=== PATIENT | male | born 1955 | race Caucasian/White ===

== ENCOUNTER 2019-02-13 10:21 | Outpatient (CLI) | payer OTHER ==
[2019-02-13 18:29] LABS: PT - PROTHROMBIN TIME 11.5 secs (9.9-12.6)
[2019-02-14 12:10] LABS: HEPATITIS C ANTIBODY NON-REACTIVE (NON-REACTIVE)
== END 2019-02-13 10:22 | disposition home or self-care (01) ==
LOC: LAB.S 10:21
PROVIDERS: ATTEND Naturopath
DX: Z11.59 Encounter for screening for other viral diseases (principal); D72.818 Other decreased white blood cell count
CPT/HCPCS: 36415; 81599; 85250; 85610; 85730; 86803

== ENCOUNTER 2019-05-18 13:23 | Emergency (ER) | payer BC, OTHER ==
--- NOTE | 2019-05-18 14:40 | XRAY Report ---
Reason: pain/deformity Procedure Date: 05/18/2019 Accession Number: [id number] / [id number] Procedure: XR - Elbow 3 View RT CPT Code: Final Report FULL RESULT: EXAM: RIGHT ELBOW RADIOGRAPHY EXAM DATE: 05/18/2019 02:23 PM. CLINICAL HISTORY: Pain/deformity. COMPARISON: None. TECHNIQUE: 3 views. FINDINGS: Bones: No fractures or bone lesions. Joints: No significant degenerative process. No effusion. No subluxation. Soft Tissues: No soft tissue swelling or soft tissue calcification. IMPRESSION: Negative right elbow radiography. RADIA
[2019-05-18] MEDS ORDERED: oxyCODONE 5 MG TABLET PO STA (15:24)
--- NOTE | 2019-05-18 15:31 | ED Physician Documentation ---
PD HPI UPPER EXT INJURY - Stated complaint Stated Complaint: ARM INJURY - Chief complaint Chief Complaint: Trauma Ext - History obtained from History obtained from: Patient - History of Present Illness Location: Right, Arm Type of injury: Other (felt a pop lifting a garbage can into his truck) Where injury occurred: Home Timing - onset: How many hours ago Timing - duration: Hours (1) Timing - details: Abrupt onset Pain level max: 7 Pain level now: 7 Improved by: Rest Worsened by: Moving, Palpating Associated symptoms: Swelling Contributing factors: No: Anticoagulated, Prior ortho surgery, Prosthetic joint, Work related Similar symptoms before: Has not had sx before Recently seen: Not recently seen Review of Systems Constitutional: denies: Fever GI: denies: Vomiting Skin: denies: Rash Musculoskeletal: denies: Neck pain, Back pain Neurologic: denies: Headache PD PAST MEDICAL HISTORY - Past Medical History Past Medical History: No Cardiovascular: None Respiratory: None Neuro: None Endocrine/Autoimmune: None GI: Diverticulitis : None HEENT: None Psych: None Musculoskeletal: None Derm: None - Past Surgical History Past Surgical History: Yes HEENT: Tonsil/Adenoidectomy - Present Medications Home Medications: Ambulatory Orders Medication Instructions Recorded Confirmed Oxycodone HCl/Acetaminophen 1 - 2 each PO Q6H PRN #20 tablet 05/18/19 [Percocet 5-325 mg Tablet] - Allergies Allergies/Adverse Reactions: Allergies Allergy/AdvReac Type Severity Reaction Status Date / Time No Known Drug Allergies Allergy Verified 05/18/19 14:05 - Social History Does the pt smoke?: Yes Smoking Status: Current every day smoker Does the pt drink ETOH?: Yes Does the pt have substance abuse?: No - Immunizations Immunizations are current?: Yes - POLST Patient has POLST: No PD ED PE NORMAL - Vitals Vital signs reviewed: Yes - General General: Alert and oriented X 3, No acute distress - HEENT HEENT: Moist mucous membranes - Neck Neck: Supple, no meningeal sign - Cardiac Cardiac: RRR - Respiratory Respiratory: No respiratory distress, Clear bilaterally - Derm Derm: Warm and dry - Extremities Extremities: Other (Deformity to the right bicep. Tenderness along the inferior aspect of the muscle. Neurovascular intact. Otherwise normal exam) - Neuro Neuro: Alert and oriented X 3 Results - Vitals Vitals: Vital Signs - 24 hr 05/18/19 14:03 Temperature 36.6 C Heart Rate 87 Respiratory 16 Rate Blood Pressure 156/97 H O2 Saturation 96 Oxygen O2 Source Room air - Rads (name of study) Right elbow x-ray Radiology: Prelim report reviewed, EMP read contemporaneously, See rad report (Normal) PD MEDICAL DECISION MAKING - ED course Complexity details: reviewed results, re-evaluated patient, considered differential, d/w patient, d/w it solutions sales consultant (Dr. Rose - ortho - Recommend sling and follow-up in clinic) ED course: Patient with a tendon versus muscle tear of the right bicep. Discussed the case with orthopedics, placed in a sling. Neurovascularly intact. He will follow-up with orthopedics for further care. Patient counseled regarding signs and symptoms for which I believe and urgent re-evaluation would be necessary. Patient with good understanding of and agreement to plan and is comfortable going home at this time This document was made in part using voice recognition software. While efforts are made to proofread this document, sound alike and grammatical errors may occur. Departure - Departure Disposition: 01 Home, Self Care Clinical Impression: Tear of right biceps muscle Qualifiers: Encounter type: initial encounter Qualified Code(s): S46.211A - Strain of muscle, fascia and tendon of other parts of biceps, right arm, initial encounter Condition: Good Instructions: ED Strain Muscle Ext Follow-Up: Ken Staley MD [Provider Admit Priv/Credential] - Within 1 week Prescriptions: Oxycodone HCl/Acetaminophen [Percocet 5-325 mg Tablet] 1 - 2 each PO Q6H PRN #20 tablet PRN Reason: pain Comments: Wear the sling for comfort. Return if you worsen. Follow up with orthopedics for further care. You appear to have torn your bicep tendon today. Do not drink alcohol or drive while on narcotic pain medicine. Note that many narcotic pain relievers also contain tylenol/acetaminophen. Please ensure that your total dose of acetaminophen from all sources does not exceed 3 grams (3000mg) per day. You may constipated on this medication, take a stool softener such as "Colace" twice a day while you are on it. Also recommend a vgvl-syk-kvjjfgl laxative such as senna or MiraLAX any day that you do not have a bowel movement. If you received narcotic pain medication in the emergency department, do not drive or operate machinery for the next 24 hours.
[2019-05-18 15:48] VITALS: BP 149/93
== END 2019-05-18 15:48 | disposition home or self-care (01) ==
LOC: ED 13:23
DX: S46.211A Strain of muscle, fascia and tendon of other parts of biceps, right arm, initial encounter (principal); X50.0XXA Overexertion from strenuous movement or load, initial encounter; Y93.89 Activity, other specified; Y92.009 Unspecified place in unspecified non-institutional (private) residence as the place of occurrence of the external cause; F17.200 Nicotine dependence, unspecified, uncomplicated
CPT/HCPCS: 73080; 99283; 99284; A9270

== ENCOUNTER 2019-06-01 09:45 | Outpatient (CLI) | payer BC ==
[2019-06-01 10:04] LABS: BASOPHILS % (AUTO) 0.7 %; EOSINOPHILS # (AUTO) 0.2 10^3/uL (0.0-0.7); EOSINOPHILS % (AUTO) 3.5 %; HGB - HEMOGLOBIN 14.9 g/dL (14.0-18.0); LYMPHOCYTES % (AUTO) 18.8 %; MEAN CORPUSCULAR HEMOGLOBIN 30.8 pg (27.0-31.0); MEAN CORPUSCULAR HGB CONC 33.3 g/dL (32.0-36.0); MEAN CORPUSCULAR VOLUME 92.8 fL (80.0-94.0); MEAN PLATELET VOLUME 9.9 fL (7.4-11.4); MONOCYTES # (AUTO) 0.5 10^3/uL (0.0-1.0); MONOCYTES % (AUTO) 8.9 %; NEUTROPHILS # (AUTO) 3.7 10^3/uL (1.5-6.6); NEUTROPHILS % (AUTO) 67.7 %; PLT - PLATELET COUNT 245 10^3/uL (130-450); RED BLOOD COUNT 4.83 10^6/uL (4.70-6.10); RED CELL DISTRIBUTION WIDTH 13.1 % (12.0-15.0); WHITE BLOOD COUNT 5.5 x10^3/uL (4.8-10.8)
[2019-06-01 10:14] LABS: CREATININE 1.1 mg/dL (0.6-1.2)
== END 2019-06-01 09:46 | disposition home or self-care (01) ==
LOC: LAB 09:45
PROVIDERS: ATTEND Orthopaedic Surgery Sports Medicine
DX: Z01.818 Encounter for other preprocedural examination (principal); S46.211D Strain of muscle, fascia and tendon of other parts of biceps, right arm, subsequent encounter
CPT/HCPCS: 36415; 80048; 85025; 93005

== ENCOUNTER 2019-06-03 08:44 | Day surgery (SDC) | payer BC ==
[2019-06-03] MEDS ORDERED: CEFAZOLIN SODIUM IN 0.9 % NACL 2 GM/100 ML BAG IV ONE (08:53)
[2019-06-03] MEDS ORDERED: LACTATED RINGERS 1,000 ML IV ONE ×2 (08:59→12:51)
--- NOTE | 2019-06-03 10:22 | ANESTHESIA ---
Pre-Anesthesia VS, & Labs - Diagnosis right distal biceps avulsion - Procedure right distal biceps debridement and repair Vital Signs: Temp Pulse Resp BP Pulse Ox 36.6 C 77 16 128/83 H 94 06/03/19 09:07 06/03/19 09:07 06/03/19 09:07 06/03/19 09:07 06/03/19 09:07 Height 5 ft 6.5 in Weight (kg) 74.2 kg Body Mass Index 25.0 - NPO Last Fluid Intake: 0700-black coffee Home Medications and Allergies Home Medications: Ambulatory Orders No Known Home Medications 05/29/19 No Known Home Medications 05/29/19 Allergies/Adverse Reactions: Allergies Allergy/AdvReac Type Severity Reaction Status Date / Time No Known Drug Allergies Allergy Verified 06/03/19 09:19 Anes History & Medical History - Anesthetic History Anesthesia Complications: reports: No previous complications - Medical History Cardiovascular: reports: None Pulmonary: reports: None Gastrointestinal: reports: None, Diverticulitis Urinary: reports: None, Other (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 Told to avoid NSAIDS) Neuro: reports: None Musculoskeletal: reports: None Endocrine/Autoimmune: reports: None Blood Disorders: reports: None Skin: reports: None Smoking Status: Former smoker (quit 20 years ago) Psychosocial: reports: Alcohol (2 beers per week) - Surgical History General: Colonoscopy Eyes Ears Nose Throat (EENT): Tonsil/Adenoidectomy Results - EKG Results EKG Comparison: Reviewed EKG, Normal EKG Exam General: Alert, Oriented x3, Cooperative, No acute distress Dental: WNL Mouth Openin Fingerbreadth Neck Mobility: Normal Mallampati classification: IV Thyromental Distance: greater than 6 cm Respiratory: Lungs clear, Normal breath sounds, No respiratory distress, No ac cessory muscle use Cardiovascular: Regular rate, Normal S1, Normal S2, No murmurs Mental/Cognitive Status: Alert/Oriented X3, Normal for patient Plan Anesthesia Type: General, Supraclavicular Block (right) Regional Block: Per Surgeon's request for Post Op pain control Consent for Procedure(s) Verified and Reviewed: Yes Code Status: Attempt Resuscitation ASA classification: 2-Mild systemic disease Is this case an emergency?: No
[2019-06-03] MEDS ORDERED: fentaNYL 100 MCG/2 ML VIAL IVP ONE (11:14)
[2019-06-03] MEDS ORDERED: ONDANSETRON 4 MG/2 ML VIAL IVP ONE (11:14)
[2019-06-03] MEDS ORDERED: DEXAMETHASONE 4 MG/ML VIAL IVP ONE (11:14)
[2019-06-03] MEDS ORDERED: LIDOCAINE-MPF 2% 5 ML VIAL IM ONE (11:14)
[2019-06-03] MEDS ORDERED: ePHEDrine 50 MG/ML VIAL IVP ONE (11:14)
[2019-06-03] MEDS ORDERED: PROPOFOL 200 MG/20 ML VIAL IVP ONE (11:14)
[2019-06-03] MEDS ORDERED: MIDAZOLAM 2 MG/2 ML VIAL IVP ONE (11:14)
[2019-06-03] MEDS ORDERED: NEOSTIGMINE 1 MG/1 ML 10 ML MDV IVP ONE (11:14)
[2019-06-03] MEDS ORDERED: BUPIVACAINE 0.25% PF 30 ML VIAL SUBQ ONE (11:49)
--- NOTE | 2019-06-03 12:30 | ANESTHESIA PROCEDURE NOTE ---
Diagnosis: Right biceps evulsion Procedure: Right supraclavicular block Consent for Procedure(s) Verified and Reviewed: Yes Height and Weight: Height 5 ft 6.5 in Weight (kg) 74.2 kg Body Mass Index 25.0 Vital Signs: Temp Pulse Resp BP Pulse Ox 36.6 C 77 16 128/83 H 94 06/03/19 09:07 06/03/19 09:07 06/03/19 09:07 06/03/19 09:07 06/03/19 09:07 Allergies No Known Drug Allergies Allergy (Verified 06/03/19 09:19) Requesting Provider: Dr. Staley Location: Right ASA classification: 2-Mild systemic disease Is this case an emergency?: No Anes. Monitoring and Equipment: Non-invasive BP, Pulse oximetery Anes. Procedure Start Time: 10:55 Anes. Procedure Stop Time: 11:04 Procedure Notes: After informed consent obtained and timeout, Patients right neck was prepped with chloroprep. The right brachial plexus was imaged with ultrasound and a 22G blunted stimiplex needle was directed to the nerve sheath. A total of 30ml of 0.5% ropivicaine was injected with adequate spread noted. A total of 2mg versed was given for patient comfort. Patient tolerated well. Full evaluation pending.
[2019-06-03] MEDS ORDERED: oxyCODONE 5 MG TABLET PO PRN (12:55)
[2019-06-03] MEDS ORDERED: ONDANSETRON 4 MG/2 ML VIAL IVP PRN (12:55)
--- NOTE | 2019-06-03 13:02 | IMMEDIATE POSTOPERATIVE NOTE ---
Immediate Postoperative Note - Procedure Note Procedure Date: 06/03/19 Pre-Op Diagnosis: Right distal biceps avulsion Procedure: Right distal biceps debridement and repair Post-Op Diagnosis: Same Primary Surgeon: Mary HOLGUIN Communications Specialist: None Anesthesia Type: General LMA, Regional block Findings: Distal biceps avulsed from bicipital tuberosity of radius. Post repair it is seated in socket approximately 10 mm with excellent fixation with good integrity with range of motion of elbow and forearm. Complications: No complications Estimated Blood Loss (in cc): 5 Drains, Catheters, Devices: None Specimens and Cultures: None Plan of Care: Patient tolerated procedure well instrument and sponge counts correct patient transferred to recovery room in stable condition Patient will follow standard postoperative right upper extremity distal biceps debridement repair protocol
[2019-06-03 14:04] VITALS: BP 129/84
--- NOTE | 2019-06-05 09:17 | OPERATIVE REPORT ---
DATE OF SERVICE: 06/03/2019 Physician: Ken Staley MD SURGEON: Ken Staley MD REVERBERATORY SKIMMER: None. ANESTHESIOLOGIST: Alfredo Marlow CRNA ANESTHESIA: General anesthesia as well as regional block under ultrasound guidance. COMPRESSION DEVICE: Bilateral calf SCD boots. FLUIDS: 700 mL lactated Ringer's. PREOPERATIVE ANTIBIOTICS: Weight-based IV Ancef. ESTIMATED BLOOD LOSS: Less than 5 mL. TOURNIQUET TIME: 54 minutes at 250 mmHg. PREOPERATIVE DIAGNOSIS: Right distal biceps avulsion. POSTOPERATIVE DIAGNOSIS: Right distal biceps avulsion. PROCEDURES PERFORMED: Right distal biceps debridement and repair. ORTHOPEDIC IMPLANTS: Arthrex biceps button and #5 FiberWire. HISTORY OF PRESENT ILLNESS AND INDICATION: There is a gentleman who ruptured his distal biceps. He is indicated for operative repair. Please see previous clinic discussion for risks, benefits, altern atives, which are again highlighted with the patient and the patient's in the preoperative care unit. The patient's questions are answered. They verbalized thorough understanding of the above and verbalized wish to proceed with operative treatment. Informed consent is given. INTRAOPERATIVE FINDINGS: The patient noted to have a full-thickness avulsion of the distal biceps fr om the bicipital tuberosity of the radius. There is some tendinosis at the distal aspect of the mena ps, otherwise good quality tendon which, once repaired, is to the near anatomic location on the bicep s tuberosity of the radius and has good integrity of the repair with elbow range of motion. PROCEDURE DETAILS: On 06/03/2019, the patient is identified in the preoperative care unit. He ident ifies his right elbow as the operative site. This is signed by the operating surgeon. The patient r eceived preoperative weight-based IV antibiotics, is brought to the operating room. After ultrasound- guided regional anesthesia block and general anesthesia is administered, he is placed supine on the o perating table with head, neck and extremities placed in anatomic comfortable and safe positions to a void peripheral nerve stretch compression. The patient's right upper extremity then has a well-padde d tourniquet placed high on the right arm, taking care to avoid encumbrance of the axilla. The patie nt's right antecubital area is shaved additionally for the operative site and then prepped first with Hibiclens solution, followed by alcohol, followed by prepping and draping with ChloraPrep solution. At this time, surgical pause identifies right elbow as the operative site. At this time, tourniquet is inflated after Esmarch bandage exsanguination, and then an incision is made just distal to the ant ecubital crease lengthwise in the mid volar forearm through skin. Spreading dissection is carried out to avoid iatrogenic injury to adjacent lateral antebrachial cutaneous nerve. Spreading dissection c arried out to the intermuscular plane and then blunt dissection carried out down to the bicipital tub erosity of the radius, which then revealed a serous fluid collection which is evacuated, and then the biceps is tracked up towards the distal third of the arm. Ultimately with careful dissection, the di stal tip of the biceps is identified and then delivered with an Allis clamp. It is debrided sharply to healthy tissue and then a #5 FiberWire is whipstitched into this from distal to proximal, again di stal, and then a biceps button is used and the sutures are passed through the biceps button and set a side inside the arm while further preparation of the bicipital tuberosity is commenced. At this time, bicipital tuberosity of the radius is identified. The forearm is supinated and pregnan t baby Homans' are placed directly on the bone medially and laterally, thereby revealing the donor si te. This is curetted and rongeured, and then once identified appropriately, a guidepin is placed int o the bicipital tuberosity of the radius, confirmed with mini C-arm fluoroscopic image. Then the guid epin is used to guide a reamer into the center portion of the bicipital tuberosity of the radius usin g a reamer commensurate with the size of the biceps tendon itself. Bony debris is evacuated immediat dung. This is copiously irrigated again and evacuated to limit risk of heterotopic ossification. At this point, the second cortex is made with the biceps drill pin and then this is removed. At this po int, the biceps path is noted to be clear. Then the biceps button is placed into the socket through the second cortex, allowed to toggle and then the biceps tendon is toggled into place using alternati ve pulling on the #5 FiberWire. The biceps then seats approximately 10 mm and it is nicely seated in the socket, at which point surgeon's knot and multiple reverse half hitches are placed. The suture ends are cut, knot pusher is used for this portion, put the knot into the socket. At this point, the biceps is noted to be well fixed in the tuberosity and the elbow is ranged and noted to have stable fixation. At this point, the wound is copiously irrigated, hemostasis is confirmed and then the inci arline is closed using 0 Vicryl, 2-0 Vicryl interrupted nylon suture. Skin is washed and dried. Xerof orm dressing applied, dry sterile dressing, and then soft roll is applied from the hand all the way u p to the axilla, followed by Ignacio wrap. The patient is placed in a sling at 90 degrees. The patient tolerated the procedure well. Instrument and sponge counts are correct. The patient is transferred to recovery room in stable condition. He will follow all standard postoperative long hea d biceps debridement repair protocol. Discussed the case with the patient's in the waiting area. Her questions are answered. Postope rative instructions given. Perioperative medication plan previously reviewed. Denies any contraindi cation to medication plan and will use them as directed. He will follow up in 10-14 days or sooner s erica problems, questions or worsening condition arise. TD: 06/05/2019 07:35
== END 2019-06-03 08:45 | disposition home or self-care (01) ==
LOC: SDS 08:44
PROVIDERS: ATTEND Orthopaedic Surgery Sports Medicine
PROC: 0LM30ZZ Reattachment of Right Upper Arm Tendon, Open Approach (ICD-10-PCS; principal; 2019-06-03 10:00)
DX: S46.291A Other injury of muscle, fascia and tendon of other parts of biceps, right arm, initial encounter (principal); N19 Unspecified kidney failure; Z87.891 Personal history of nicotine dependence

== ENCOUNTER 2020-02-14 20:43 | Outpatient (CLI) | payer BC | END 2020-02-14 20:44 | disposition critical access hospital (66) | LOC: EMS 20:43 | PROVIDERS: ATTEND Surgery | DX: R42 Dizziness and giddiness (principal) | CPT/HCPCS: A0425; A0427 ==

== ENCOUNTER 2020-02-14 21:11 | Inpatient (IN) | payer BC, OTHER ==
--- NOTE | 2020-02-14 21:18 | ED Physician Documentation ---
History of Present Illness - Stated complaint Stated Complaint: GI BLEED - History obtained from History obtained from: Patient - Additonal information Additional information: Patient is a 64-year-old male who presents with hematochezia via ambulance. Reports he has a history of such from diverticular bleeds. Denies being anticoagulated denies abdominal pain reports she feels too weak to stand up and then he might pass out.Reports he has been having about 5 bloody bowel movements since about noon today. Review of Systems Constitutional: reports: Reviewed and negative Eyes: reports: Reviewed and negative Ears: reports: Reviewed and negative Nose: reports: Reviewed and negative Throat: reports: Reviewed and negative Cardiac: reports: Reviewed and negative Respiratory: reports: Reviewed and negative GI: reports: Bloody / black stool : reports: Reviewed and negative Skin: reports: Reviewed and negative Musculoskeletal: reports: Reviewed and negative Neurologic: reports: Reviewed and negative Psychiatric: reports: Reviewed and negative Endocrine: reports: Reviewed and negative Immunocompromised: reports: Reviewed and negative PD PAST MEDICAL HISTORY - Past Medical History Cardiovascular: None Respiratory: None Neuro: None Endocrine/Autoimmune: None GI: None, Diverticulitis : None, Other (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 Told to avoid NSAIDS) HEENT: Chronic hearing loss Psych: None Musculoskeletal: None Derm: None - Past Surgical History Past Surgical History: Yes General: Colonoscopy HEENT: Tonsil/Adenoidectomy - Present Medications Home Medications: Ambulatory Orders Medication Instructions Recorded Confirmed No Known Home Medications 05/29/19 06/03/19 - Allergies Allergies/Adverse Reactions: Allergies Allergy/AdvReac Type Severity Reaction Status Date / Time No Known Drug Allergies Allergy Verified 02/14/20 21:18 - Social History Does the pt smoke?: Yes Smoking Status: Former smoker (quit 20 years ago) Does the pt drink ETOH?: Yes Does the pt have substance abuse?: No - Immunizations Immunizations are current?: Yes - POLST Patient has POLST: No PD ED PE NORMAL - Vitals Vital signs reviewed: Yes - General General: Alert and oriented X 3, No acute distress, Well developed/nourished - HEENT HEENT: PERRL - Neck Neck: Supple, no meningeal sign - Cardiac Cardiac: RRR, No murmur - Respiratory Respiratory: Clear bilaterally - Abdomen Abdomen: Normal bowel sounds, Soft, Non tender, Non distended - Derm Derm: Warm and dry - Extremities Extremities: No deformity - Neuro Neuro: Alert and oriented X 3 - Psych Psych: Normal mood, Normal affect Results - Vitals Vitals: Vital Signs - 24 hr 02/14/20 02/14/20 21:18 21:51 Temperature 36.6 C 36.6 C Heart Rate 85 85 Respiratory 16 16 Rate Blood Pressure 117/74 117/74 O2 Saturation 100 100 Oxygen O2 Source Room air - EKG (time done) 21:49 Rate: Other (no stemi) - Labs Labs: Laboratory Tests 02/14/20 02/14/20 02/14/20 21:40 21:40 21:40 WBC 6.8 RBC 2.91 L Hgb 8.7 L Hct 27.3 L MCV 93.8 MCH 29.9 MCHC 31.9 L RDW 13.8 Plt Count 166 MPV 10.5 Neut # (Auto) 5.6 Lymph # (Auto) 0.7 L Wilkes # (Auto) 0.4 Eos # (Auto) 0.1 Baso # (Auto) 0.0 Absolute Nucleated RBC 0.00 Nucleated RBC % 0.0 PT 14.1 H INR 1.3 H Sodium Potassium Chloride Carbon Dioxide Anion Gap BUN Creatinine Estimated GFR (MDRD) Glucose Calcium Total Bilirubin AST ALT Alkaline Phosphatase Troponin I High Sens Total Protein Albumin Globulin Albumin/Globulin Ratio Lipase Blood Type A POSITIVE Antibody Screen NEGATIVE Crossmatch IS Only 02/14/20 02/14/20 02/14/20 21:40 21:40 21:40 WBC RBC Hgb Hct MCV MCH MCHC RDW Plt Count MPV Neut # (Auto) Lymph # (Auto) Wilkes # (Auto) Eos # (Auto) Baso # (Auto) Absolute Nucleated RBC Nucleated RBC % PT INR Sodium 140 Potassium 3.9 Chloride 114 H Carbon Dioxide 23 Anion Gap 3.0 L BUN 20 Creatinine 0.9 Estimated GFR (MDRD) 85 L Glucose 101 H Calcium 7.5 L Total Bilirubin 0.5 AST 14 ALT 15 Alkaline Phosphatase 19 L Troponin I High Sens 2.6 Total Protein 4.6 L Albumin 2.7 L Globulin 1.9 L Albumin/Globulin Ratio 1.4 Lipase 37 Blood Type Cancelled Antibody Screen Cancelled Crossmatch IS Only See Detail PD MEDICAL DECISION MAKING - ED course Complexity details: reviewed old records, reviewed results, re-evaluated patient, considered differential, d/w patient, d/w family, d/w application support consultant ED course: 64-year-old male who presents with multiple bloody bowel movements yesterday and today. He has a history of similar episodes. His hemoglobin in May was 14.7 at 8.7 today. Patient reports having grossly bloody bowel movement several times daily. I did speak with surgery who will stay on as a consult as well as the hospitalist who will graciously has agreed to admit this patient. We did get a CT scan of the abdomen and pelvis as well that has a preliminary radiology interpretation that shows an impression of small bowel air-fluid levels which could be due to enteritis or dysmotility severe right hydronephrosis with renal cortical thinning suggestive of a chronic process dilated right ureter with abrupt distal narrowing could be due to stricture probable hemangioma in the right hepatic lobe consider nonemergent MRI if not worked up in the past and nonemergent incidental findings in the report. - Consults Consults: Consulted (name) (dr. sorto hospitalist. will admit to med surg.), Discussed case with (dr. antonio general surgery, will see in am as consult) Departure - Departure Disposition: ED Place in Observation Clinical Impression: Lower GI bleed Condition: Stable Discharge Date/Time: 02/14/20 23:09
[2020-02-14] MEDS ORDERED: SODIUM CHLORIDE 0.9% 1,000 ML IV STA (21:37)
[2020-02-14] MEDS ORDERED: PANTOPRAZOLE 40 MG VIAL IV STA (21:37)
[2020-02-14 21:53] LABS: BASOPHILS % (AUTO) 0.4 %; EOSINOPHILS # (AUTO) 0.1 10^3/uL (0.0-0.7); EOSINOPHILS % (AUTO) 0.9 %; HGB - HEMOGLOBIN 8.7 g/dL (14.0-18.0); LYMPHOCYTES # (AUTO) 0.7 10^3/uL (1.5-3.5); LYMPHOCYTES % (AUTO) 10.8 %; MEAN CORPUSCULAR HEMOGLOBIN 29.9 pg (27.0-31.0); MEAN CORPUSCULAR HGB CONC 31.9 g/dL (32.0-36.0); MEAN CORPUSCULAR VOLUME 93.8 fL (80.0-94.0); MEAN PLATELET VOLUME 10.5 fL (7.4-11.4); MONOCYTES # (AUTO) 0.4 10^3/uL (0.0-1.0); MONOCYTES % (AUTO) 5.9 %; NEUTROPHILS # (AUTO) 5.6 10^3/uL (1.5-6.6); NEUTROPHILS % (AUTO) 81.6 %; PLT - PLATELET COUNT 166 10^3/uL (130-450); RED BLOOD COUNT 2.91 10^6/uL (4.70-6.10); RED CELL DISTRIBUTION WIDTH 13.8 % (12.0-15.0); WHITE BLOOD COUNT 6.8 x10^3/uL (4.8-10.8)
[2020-02-14 21:57] LABS: INR 1.3 (0.8-1.2); PT - PROTHROMBIN TIME 14.1 secs (9.9-12.6)
[2020-02-14 22:07] LABS: ALBUMIN 2.7 g/dL (3.2-5.5); ALBUMIN/GLOBULIN RATIO 1.4 (1.0-2.2); BILIRUBIN,TOTAL 0.5 mg/dL (0.2-1.0); CALCIUM 7.5 mg/dL (8.5-10.3); CREATININE 0.9 mg/dL (0.6-1.2); TOTAL PROTEIN 4.6 g/dL (6.7-8.2)
[2020-02-14] MEDS ORDERED: SODIUM CHLORIDE FLUSH 0.9% 10 ML SYRINGE IVP PRN (22:39)
[2020-02-14] MEDS ORDERED: ONDANSETRON 4 MG/2 ML VIAL IVP PRN (22:39)
--- NOTE | 2020-02-14 22:45 | HISTORY & PHYSICAL EXAMINATION ---
Chief Complaint - Chief Complaint Chief Complaint: GI bleed History of Present Illness - Admitted From Admitted From:: [facility] ED - History Obtained From Records Reviewed: Yes History obtained from: Patient - History of Present Illness HPI Comment/Other: Patient is a 64-year-old male with medical history significant for extensive diverticular and previous history of diverticular bleed who presents to the ED with GI bleed. His symptoms have been going on for the past 3 days. On the first day he had 1 episode of bright red blood per rectum. Yesterday he had 2-3 episodes. Today he has had 5-6 bloody stools. The last episode before p resentation to the ED it was estimated that he had about 125 mils of blood per rectum. Shortly after that he was dizzy, diaphoretic and nauseous. His blood pressure was 130/80 initially and then dropped to 80/50. His heart rate increased up to the 130s. In the ED work-up showed a hemoglobin of 8.7. In May 2019 the patient's hemoglobin was 15. The patient has not had an episode of bleeding since coming to the hospital. The last time he had significant bleeding warranting admission to the hospital was 7 years ago. He has had several small bouts over the years but had not sought medical attention. During the admission 7 years ago he had a colonoscopy done and was advised due to his extensive diverticuli he would likely need colectomy. The patient was emphatic then that he did not want surgery. He is currently still very reluctant to the idea of surgery. He is resting comfortably in bed currently. He denies chest pain, abdominal pain, nausea, vomiting, fever or chills. 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 Told to avoid NSAIDS) HEENT: reports: Chronic hearing loss Psych: reports: None Musculoskeletal: reports: None Derm: reports: None MRSA Hx?: No - Past Surgical History General: reports: Colonoscopy HEENT: reports: Tonsil/Adenoidectomy - Family & Social History Family History Comment/Other: Unspecified history of heart disease in maternal and paternal grandfather Living arrangement: At home Living Situation: With spouse/s.o. Social History Notes: Patient quit smoking cigarettes about 25 years ago.. He drinks alcohol occasionally. He does not use recreational substances. 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 He lives with his . - POLST Patient has POLST: No POLST Status: Full Code Meds/Allgy - Home Medications Home Medications: Ambulatory Orders Medication Instructions Recorded Confirmed No Known Home Medications 05/29/19 06/03/19 - Allergies Allergies/Adverse Reactions: Allergies Allergy/AdvReac Type Severity Reaction Status Date / Time No Known Drug Allergies Allergy Verified 02/14/20 21:18 Review of Systems - Constitutional Constitutional: reports: Diaphoresis. denies: Fatigue, Fever, Chills, Weakness - Eyes Eyes: denies: Pain - Ears, Nose & Throat Ears, Nose & Throat: denies: Ear pain - Cardiovascular Cariovascular: reports: Lightheadedness. denies: Irregular heart rate, Palpitations, Chest pain, Edema, Syncope, Exertional dyspnea, Decr. exercise tolerance - Respiratory Respiratory: denies: Cough, Sputum production, Wheezing, SOB at rest, SOB with exertion - Gastrointestinal Gastrointestinal: reports: Bloody stools, Nausea. denies: Abdominal pain, Abdominal distention, Constipation, Diarrhea, Black stools, Vomiting, Mir blood emesis, Coffee grounds emesis - Genitourinary Genitourinary: denies: Dysuria, Frequency, Urgency, Hematuria - Musculoskeletal Musculoskeletal: denies: Muscle pain, Back pain, Muscle aches - Integumentary Integumentary: denies: Rash, Pruritis, Lesions - Neurological Neurological: denies: General weakness, Focal weakness, Headache, Dizziness - Psychiatric Psychiatric: denies: Depression, Anxiety - Endocrine Endocrine: denies: Polyuria, Polydypsia - Hematologic/Lymphatic Hematologic/Lymphatic: reports: Anemia. denies: Bruising, Petechiae Prior Level of Functionality: Patient is normally independent of activities of daily living Exam - Vital Signs Vital Signs: Vital Signs x48h Temp Pulse Resp BP Pulse Ox 02/14/20 21:51 36.6 C 85 16 117/74 100 02/14/20 21:18 36.6 C 85 16 117/74 100 - Physical Exam General Appearance: positive: No acute distress, Alert Eyes Bilateral: positive: PERRL, EOMI ENT: positive: No signs of dehydration Neck: positive: No JVD, Trachea midline Respiratory: positive: Chest non-tender, No respiratory distress, Breath sounds nml. negative: Wheezes, Rales, Rhonchi Cardiovascular: positive: Regular rate & rhythm. negative: Irregularly irregular Abdomen: positive: Non-tender, Nml bowel sounds, No distention. negative: Guarding, Rebound Back: positive: Nml inspection Skin: positive: Color nml, No rash, Warm Extremities: positive: Non-tender, Full ROM, Nml appearance, No pedal edema Neurologic/Psychiatric: positive: Oriented x3, Mood/affect nml Conclusion/Plan - Problem List (1) Lower GI bleed Conclusion/Plan: Suspected to be secondary to diverticular bleed. Patient has history of diverticulitis. Patient made n.p.o. IV hydration with normal saline. Patient typed and screened. Serial H&H every 8 hours. Patient's hemoglobin was 8.7 today. In May 2027 was 15. We will crossmatch and transfuse 2 units packed red blood cells. General surgery Dr. Mauricio was consulted for possible colonoscopy. - Lab Results Fish Bones: 02/14/20 21:40 02/14/20 21:40 Core Measures - Anticipated LOS I expect patient to be DC'd or transferred within 96 hours.: Yes - DVT/VTE - Prophylaxis VTE/DVT Device ordered at admit?: Yes VTE/DVT Prophylaxis med ordered at admit?: No
[2020-02-14] MEDS ORDERED: SODIUM CHLORIDE 0.9% 1,000 ML IV SCH (23:00)
[2020-02-14] MEDS ORDERED: IOVERSOL 320 100 ML VIAL IVP ONE (23:39)
[2020-02-15] MEDS ORDERED: IOVERSOL 320 100 ML VIAL IVP ONE ×2 (00:04→22:43)
[2020-02-15] MEDS: SODIUM CHLORIDE FLUSH 0.9% 10 ML SYRINGE IVP SCH ×3 (01:10→16:04)
[2020-02-15] MEDS ORDERED: ONDANSETRON 4 MG/2 ML VIAL IVP PRN ×2 (06:39→20:32)
[2020-02-15] MEDS ORDERED: PANTOPRAZOLE 40 MG VIAL IVP SCH (07:00)
[2020-02-15] MEDS: SODIUM CHLORIDE 0.9% 1,000 ML IV SCH ×2 (07:16→15:57)
[2020-02-15 08:25] LABS: BASOPHILS % (AUTO) 0.5 %; EOSINOPHILS # (AUTO) 0.1 10^3/uL (0.0-0.7); EOSINOPHILS % (AUTO) 2.4 %; HGB - HEMOGLOBIN 10.5 g/dL (14.0-18.0); LYMPHOCYTES # (AUTO) 0.7 10^3/uL (1.5-3.5); LYMPHOCYTES % (AUTO) 19.6 %; MEAN CORPUSCULAR HEMOGLOBIN 29.5 pg (27.0-31.0); MEAN CORPUSCULAR HGB CONC 33.2 g/dL (32.0-36.0); MEAN CORPUSCULAR VOLUME 88.8 fL (80.0-94.0); MEAN PLATELET VOLUME 10.3 fL (7.4-11.4); MONOCYTES # (AUTO) 0.3 10^3/uL (0.0-1.0); MONOCYTES % (AUTO) 8.9 %; NEUTROPHILS # (AUTO) 2.5 10^3/uL (1.5-6.6); NEUTROPHILS % (AUTO) 68.1 %; PLT - PLATELET COUNT 154 10^3/uL (130-450); RED BLOOD COUNT 3.56 10^6/uL (4.70-6.10); WHITE BLOOD COUNT 3.7 x10^3/uL (4.8-10.8)
--- NOTE | 2020-02-15 08:36 | CT Report ---
PROCEDURE: Abdomen/Pelvis W INDICATIONS: Abdominal pain CONTRAST: IV CONTRAST: Optiray 320 ml: 100 PO CONTRAST: *NO PO CONTRAST TECHNIQUE: After the administration of intravenous contrast, 5 mm thick sections acquired from the diaphragms to the symphysis. 5 mm thick coronal and sagittal reformats were acquired. For radiation dose reducti on, the following was used: automated exposure control, adjustment of mA and/or kV according to jc ent size. COMPARISON: None. FINDINGS: Image quality: Excellent. ABDOMEN: Lung bases: Lung bases are clear. Heart size is normal. Urinary tract: There is severe right hydroureteronephrosis with marked right renal cortical thinning. This is suggestive of chronic obstruction. There is an abrupt narrowing of the right distal ureter j ust proximal to the UVJ (with transition point visualized on series 6 image 36. Findings are suggesti ve of a ureteral stricture. The left kidney and ureter are within normal limits. No acute lateral pat hology demonstrated. Liver: Probable hemangioma in the posterior right hepatic lobe measuring approximately 3 cm. This has nodular peripheral enhancement which is very characteristic of hemangioma. There are numerous additi onal hepatic hypodensities which are too small to characterize on the basis of density, likely repres enting additional small hemangiomas, hepatic cysts, or potentially biliary cystadenomas. Other solid organs: Normal appearance of the gallbladder, pancreas, spleen, and adrenal glands. Peritoneum and bowel: No abnormally dilated or thickened loop of bowel. No pericolonic or mesenteric inflammatory changes. Extensive colonic diverticulosis with no findings of diverticulitis. Normal richard endix. There is a large volume of formed stool throughout the colon suggestive of constipation. Nodes and vessels: No retroperitoneal or mesenteric adenopathy by size criteria. Aorta and inferior vena cava are normal in size. Miscellaneous: Small supraumbilical fat-containing hernia with a fascial defect measuring 1.9 cm. PELVIS: Genitourinary: Bladder wall thickness is normal. Miscellaneous: Fluid-containing left inguinal hernia. No threshold enlarged pelvic or inguinal lymph nodes. Bones: No suspicious bony lesions. No vertebral body compression fractures. IMPRESSION: Large volume of formed stool throughout the colon suggestive of constipation. Extensive moderate to severe diverticulosis with no evidence of diverticulitis currently. Severe right hydroureteronephrosis with marked right renal cortical thinning, with transition point i n caliber of the right ureter distally. Findings are suggestive of a chronic ureteral stricture. Probable right hepatic lobe hemangioma measuring 3 cm. Numerous additional subcentimeter hepatic hypo densities likely benign but indeterminate on the basis of density and small size. No significant change from preliminary report. Reviewed by: Roberto Duncan MD on 02/15/2020 8:35 AM PDT Approved by: Roberto Duncan MD on 02/15/2020 8:35 AM PDT Station ID: [id number]
[2020-02-15 09:18] LABS: CALCIUM 7.8 mg/dL (8.5-10.3); CREATININE 0.8 mg/dL (0.6-1.2)
[2020-02-15] MEDS: PANTOPRAZOLE 40 MG VIAL IVP SCH (09:24)
--- NOTE | 2020-02-15 12:17 | CONSULTATION NOTE ---
History of Present Illness - Admitted From Admitted From:: Home by ambulance - History Obtained From Records Reviewed: EMR History obtained from: Patient and spouse Exam Limitations: None - History of Present Illness HPI Comment/Other: 64-year-old male with history of recurrent diverticular bleed who presents with hematochezia by ambulance. This episode has been ongoing for 4 days at this time with the each day progressively worse for the frequency of his bloody stooling. On the day of presentation, the patient was diaphoretic, presyncopal, with associated hypotension to a systolic of 80s. Associated tachycardia consistent with hypovolemic hemorrhagic shock. 7 years prior he had a similar episode at which time he was evaluated at the hospital here/would be general. Per his she feels that he was "nearly killed" at that time and she has since had a very significant concern over him and care that he receives given her impression of how poor his care was at that time. She is an employee through [employer] as well. Moreover, the work-up at that time revealed extensive diverticulosis for which the surgeon had suggested a total abdominal colectomy as the only definitive therapy. Remains reluctant for any surgical care and he and his spouse. Multiple concerns were expressed as follows: 1. Why to undergo a colonoscopy if historically the only option would be surgery for which she has no interest? 2. Why to go undergo prep if historically they have manage these bleeds conservatively with dietary modification? 3. Why to undergo prep if there fear is that it will aggravate a bleed that has since stopped after admission overnight? 4. Why was there were no communication as a relates to the plan for colonoscopy? I explained to the patient and his that I was called overnight by the ER staff as a relates to my availability and comfort to proceed with the endoscopic evaluation and that routinely standard of care is to proceed with diagnostic endoscopy for the evaluation of a gastrointestinal bleed. He denies any personal or family history of colitis, inflammatory bowel disease/Crohn's disease/ulcerative colitis, and or colorectal cancer. No recent sick contacts or travel. No recent antibiotic use. Explained imaging findings which were without colitis, no diverticulitis. No mass lesions, and notable only for extensive diverticulosis and no evidence of active diverticulits. History - Past Medical History Cardiovascular: reports: None Respiratory: reports: None Neuro: reports: None Endocrine/Autoimmune: reports: None GI: reports: None, Diverticulitis : reports: None, Other HEENT: reports: Chronic hearing loss Psych: reports: None Musculoskeletal: reports: None Derm: reports: None MRSA Hx?: No - Past Surgical History General: reports: Colonoscopy HEENT: reports: Tonsil/Adenoidectomy - Family & Social History Family History Comment/Other: Unspecified history of heart disease in maternal and paternal grandfather Living arrangement: At home Living Situation: With spouse/s.o. Social History Notes: Patient quit smoking cigarettes about 25 years ago.. He drinks alcohol occasionally. He does not use recreational substances. 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 He lives with his . - POLST Patient has POLST: No POLST Status: Full Code Meds/Allgy - Home Medications Home Medications: Ambulatory Orders Medication Instructions Recorded Confirmed No Known Home Medications 02/15/20 02/15/20 - Allergies Allergies/Adverse Reactions: Allergies Allergy/AdvReac Type Severity Reaction Status Date / Time No Known Drug Allergies Allergy Verified 02/14/20 21:18 Review of Systems - Constitutional Constitutional: reports: Fatigue, Weakness - Gastrointestinal Gastrointestinal: reports: Abdominal pain, Change in bowel habits, Rectal bleeding, Black stools, Bloody stools. denies: Nausea, Vomiting, Bile emesis, Mir blood emesis - Neurological Neurological: reports: General weakness Exam - Vital Signs Reviewed Vital Signs: Yes Vital Signs: Vital Signs x48h Temp Pulse Pulse Resp BP BP Pulse Ox 02/15/20 11:22 36.9 C 79 16 97 02/15/20 09:00 36.9 C 79 16 121/68 97 02/15/20 07:13 36.5 C 90 18 109/69 02/15/20 05:05 36.5 C 69 18 115/67 02/15/20 04:43 36.5 C 73 16 115/74 02/15/20 04:38 36.5 C 75 15 115/74 97 02/15/20 04:37 36.5 C 73 16 115/74 - Physical Exam General Appearance: positive: Alert, Mild distress Eyes Bilateral: positive: Normal inspection, PERRL, EOMI ENT: positive: ENT inspection nml Neck: positive: Nml inspection Respiratory: positive: Chest non-tender, No respiratory distress, Breath sounds nml. negative: Wheezes, Rales, Rhonchi Cardiovascular: positive: Regular rate & rhythm Abdomen: positive: Non-tender Conclusion/Plan - Diagnosis Diagnosis: 1. Extensive diverticular disease. 2. Acute blood loss anemia. 3. Hemorrhagic shock. 4. Hematochezia/gastrointestinal bleeding - Plan Plan: Plan: 1. Admit to floor/consider upgrade to ICU, with hospitalist service, should the patient necessitate higher level of care. 2. Proceed with bowel prep. Please see below for discussion with patient and family. 3. Transfuse as necessary with serial H&H. 4. Plan upper endoscopy to evaluate source, will consider upper depending on findings. 5. Aggressive resuscitation. 6. Patient may need surgical intervention however in the setting of recurrent diverticular bleed extent of resection is mostly dependent on the potential of finding a bridge bleeding diathesis. The only definitive intervention would be total abdominal colectomy with ileorectal anastomosis. 7. Bowel rest and IV fluids. 8. PPI infusion and consider Carafate pending results; unlikely benefit given this is most probably a lower intestinal source. Discussion: Both the patient and his expressed significant apprehension about proceeding with bowel prep over concerns that it might "aggravate" bleeding as a think that this could potentially "irritated" any potentially hemorrhagic site. When addressing this particular point, I explained that actually provocation is the best way to be able to find a bleeding diathesis in the setting of recurrent diverticular disease he is short of the significant sensitivity of bleeding scan, however the latter is entirely nonspecific as far as anatomic segment and could not potentially localize towards segmental colectomy. At the time of our discussion, he understood that proceeding with upper and lower endoscopy was crucial towards assessing a source and potentially offering opportunity for intervention or at least plan thereof. He ultimately agreed in spite of his 's hesitation. Risks and benefits discussed questions answered. As it relates to the specifics of proceeding with potential operative intervention in the setting of extensive diverticular disease, as mentioned elsewhere, the only definitive intervention would be total abdominal colectomy. However localization efforts either by direct colonoscopic evaluation with either clipping or or tattoo, bleeding scan, CT angios, etc. including interventional radiographic studies, could all afford the patient opportunity for segmental colectomy towards preserving bowel length. This would have some improved overall impact as it relates to long-term function. Please note that voice recognition software was used to transcribe this note and inadvertent errors might persist in spite of review and editing. I am obliged to you for your attention. I am thankful to you for allowing me to participate with you in this care of this patient. - Lab Results Fish Bones: 02/15/20 19:54 02/15/20 19:54
--- NOTE | 2020-02-15 12:48 | PHARMACY PROGRESS NOTE ---
- Best Possible Medication History Admit Date and Time: 02/14/20 1249 Processed by: Pharmacy Medication History completed: Yes Patient Interview: Completed Secondary Source(s): Physician records (PATIENT INTERVIEWED BY SPECIALIST PHYSICIAN. PATIENT ABLE TO CONFIRM HE TAKES NO HOME MEDICATIONS ), Pharmacy records, Insurance records As the person ultimately responsible for medication therapy, providers are able to order a medication from an existing home medication list in [facility] via the "Reconcile Routine" prior to Confirmation of that medication by production support specialist. Such practice is discouraged except when the physician, in their clinical ju dgment, deems that a medical need exists for a medication without regard to previous use.
[2020-02-15] MEDS: SODIUM/POTASSIUM/MAG SULFATES 354 ML PREP KIT PO SCH ×2 (15:31→18:27)
[2020-02-15] MEDS ORDERED: CARBOXYMETHYLCELLULOSE OPHTH DROPS EACHEYE PRN (16:30)
[2020-02-15] MEDS ORDERED: ACETAMINOPHEN 160 MG/5 ML SUSP UDC PO PRN (16:32)
--- NOTE | 2020-02-15 19:19 | PROVIDER PROGRESS NOTE ---
Assessment/Plan - Problem List (1) Lower GI bleed Assessment/Plan: Patient was started on bowel prep in anticipation for colonoscopy and EGD the following day. However within a few hours of starting the prep patient had about 7 bowel movements with blood in them. As a result the general surgeon was contacted and the patient was taken for the colonoscopy and EGD tonight. Peak of patient's CBC showed a hemoglobin of 13. However this was likely hemoconcentrated The colonoscopy showed extensive diverticulosis. Dr. Mauricio the general surgeon went over the results extensively with the patient and his . He recommended the patient be monitored in the ICU with frequent serial H&H's however the patient declined to be transferred to the ICU. He also recommended a CT Angio of the abdomen and pelvis which the patient also declined. We will continue to monitor the patient in his current room with frequent vital checks. - Current Meds Current Meds: Current Medications Generic Name Dose Route Start Last Admin Trade Name Freq PRN Reason Stop Dose Admin Carboxymethylcellulose 1 drops 02/15/20 16:30 02/15/20 16:38 Refresh 1% Ophth Drops EACHEYE 1 drops Q4HR PRN Administration Dry Eye Sodium Chloride 1,000 mls @ 100 mls/hr 02/15/20 04:00 02/15/20 15:57 Normal Saline 0.9% IV 100 mls/hr .Q10H VINAYAK Administration Pantoprazole Sodium 40 mg 02/15/20 07:00 02/15/20 09:24 Protonix IVP 40 mg QDAC VINAYAK Administration Sodium Chloride 10 ml 02/15/20 01:00 02/15/20 16:04 Normal Saline Flush 0.9% IVP Not Given 0100,0900,1700 VINAYAK - Lab Result Fish Bone Diagrams: 02/16/20 14:59 02/16/20 05:09 - Additional Planning My Orders: My Active Orders 02/14/20 22:39 Activity Orders [RC] Q2HR IO [RC] IOSHIFT Oxygen Therapy [RC] Routine Telemetry- [RC] Q4HR Vital Signs [RC] Q4HR Sodium Chloride Flush 0.9% [Normal Saline Flush 0.9%] 10 ml IVP PRN PRN Code Status [OTHERS] Routine Condition of Patient [OTHERS] Routine DVT Prophylaxis [OTHERS] Routine 02/14/20 22:43 General Surgery Consult [CONS] Routine 02/15/20 00:11 Transfuse RBCs Leukoreduced [RC] .ONCE 02/15/20 01:00 Sodium Chloride Flush 0.9% [Normal Saline Flush 0.9%] 10 ml IVP 0100,0900,1700 02/15/20 04:00 Sodium Chloride 0.9% [Normal Saline 0.9%] 1,000 ml IV 100 mls/hr 02/15/20 06:39 Ondansetron Inj [Zofran Inj] 4 mg IVP Q6HR PRN 02/15/20 07:00 Pantoprazole [Protonix] 40 mg IVP QDAC 02/16/20 05:00 BMP - BASIC METABOLIC PANEL [CHEM] DAILYLAB CBC - COMP BLD CT W/AUTO DIFF [HEME] DAILYLAB 02/17/20 05:00 BMP - BASIC METABOLIC PANEL [CHEM] DAILYLAB CBC - COMP BLD CT W/AUTO DIFF [HEME] DAILYLAB 02/18/20 05:00 BMP - BASIC METABOLIC PANEL [CHEM] DAILYLAB CBC - COMP BLD CT W/AUTO DIFF [HEME] DAILYLAB 02/19/20 05:00 BMP - BASIC METABOLIC PANEL [CHEM] DAILYLAB CBC - COMP BLD CT W/AUTO DIFF [HEME] DAILYLAB Subjective - Subjective Patient Reports: Other (Patient had at least 7 bloody bowel movements in about 2 hours after starting bowel prep. He denied any complaints of dizziness, chest pain, dyspnea but appeared less alert than he was the previous day.) Objective Vital Signs: Vital Signs - 24 hr 02/14/20 02/14/20 02/14/20 21:18 21:51 23:30 Temperature 36.6 C 36.6 C 36.4 C L Heart Rate 85 85 Heart Rate [ 81 Brachial] Respiratory 16 16 18 Rate Blood Pressure 117/74 117/74 Blood Pressure 127/76 [Right Brachial artery] O2 Saturation 100 100 98 02/15/20 02/15/20 02/15/20 01:04 01:25 04:37 Temperature 36.6 C 36.5 C 36.5 C Heart Rate 90 81 73 Heart Rate [ Brachial] Respiratory 18 16 16 Rate Blood Pressure 114/73 115/64 115/74 Blood Pressure [Right Brachial artery] O2 Saturation 02/15/20 02/15/20 02/15/20 04:38 04:43 05:05 Temperature 36.5 C 36.5 C 36.5 C Heart Rate 73 69 Heart Rate [ 75 Brachial] Respiratory 15 16 18 Rate Blood Pressure 115/74 115/67 Blood Pressure 115/74 [Right Brachial artery] O2 Saturation 97 02/15/20 02/15/20 02/15/20 07:13 09:00 11:22 Temperature 36.5 C 36.9 C 36.9 C Heart Rate 90 79 Heart Rate [ 79 Brachial] Respiratory 18 16 16 Rate Blood Pressure 109/69 Blood Pressure 121/68 [Right Brachial artery] O2 Saturation 97 97 02/15/20 02/15/20 14:00 17:00 Temperature 36.7 C 36.9 C Heart Rate Heart Rate [ 72 80 Brachial] Respiratory 18 Rate Blood Pressure Blood Pressure 122/75 125/77 [Right Brachial artery] O2 Saturation 96 97 Oxygen O2 Source Room air I&O (Last 24 Hrs): Intake and Output Totals x24h 02/13/20 02/14/20 02/15/20 23:59 23:59 23:59 Intake Total 2580.333 Balance 2580.333 General: Alert, Oriented x3, No acute distress HEENT: PERRLA, EOMI Neck: Supple, No JVD Neuro: Alert, Oriented Times 3 Cardiovascular: Regular rate Respiratory: Chest non-tender, No respiratory distress, Breath sounds nml Abdomen: Normal bowel sounds, Soft Rectal: Bloody Stool Extremities: No clubbing, No cyanosis, No edema Skin: No rashes - Results Results: Laboratory Results WBC 3.7 x10^3/uL (4.8-10.8) L 02/15/20 08:10 RBC 3.56 10^6/uL (4.70-6.10) L 02/15/20 08:10 Hgb 10.5 g/dL (14.0-18.0) L 02/15/20 08:10 Hct 31.6 % (42.0-52.0) L 02/15/20 08:10 MCV 88.8 fL (80.0-94.0) 02/15/20 08:10 MCH 29.5 pg (27.0-31.0) 02/15/20 08:10 MCHC 33.2 g/dL (32.0-36.0) 02/15/20 08:10 RDW 15.0 % (12.0-15.0) 02/15/20 08:10 Plt Count 154 10^3/uL (130-450) 02/15/20 08:10 MPV 10.3 fL (7.4-11.4) 02/15/20 08:10 Neut # (Auto) 2.5 10^3/uL (1.5-6.6) 02/15/20 08:10 Lymph # (Auto) 0.7 10^3/uL (1.5-3.5) L 02/15/20 08:10 [place] # (Auto) 0.3 10^3/uL (0.0-1.0) 02/15/20 08:10 Eos # (Auto) 0.1 10^3/uL (0.0-0.7) 02/15/20 08:10 Baso # (Auto) 0.0 10^3/uL (0.0-0.1) 02/15/20 08:10 Absolute Nucleated RBC 0.00 x10^3/uL 02/15/20 08:10 Nucleated RBC % 0.0 /100WBC 02/15/20 08:10 PT 14.1 secs (9.9-12.6) H 02/14/20 21:40 INR 1.3 (0.8-1.2) H 02/14/20 21:40 Sodium 138 mmol/L (135-145) 02/15/20 08:10 Potassium 3.6 mmol/L (3.5-5.0) 02/15/20 08:10 Chloride 111 mmol/L (101-111) 02/15/20 08:10 Carbon Dioxide 23 mmol/L (21-32) 02/15/20 08:10 Anion Gap 4.0 (6-13) L 02/15/20 08:10 BUN 18 mg/dL (6-20) 02/15/20 08:10 Creatinine 0.8 mg/dL (0.6-1.2) 02/15/20 08:10 Estimated GFR (MDRD) 98 (>89) 02/15/20 08:10 Glucose 101 mg/dL (70-100) H 02/15/20 08:10 Calcium 7.8 mg/dL (8.5-10.3) L 02/15/20 08:10 Total Bilirubin 0.5 mg/dL (0.2-1.0) 02/14/20 21:40 AST 14 IU/L (10-42) 02/14/20 21:40 ALT 15 IU/L (10-60) 02/14/20 21:40 Alkaline Phosphatase 19 IU/L (42-121) L 02/14/20 21:40 Troponin I High Sens 2.6 ng/L (2.3-19.7) 02/14/20 21:40 Total Protein 4.6 g/dL (6.7-8.2) L 02/14/20 21:40 Albumin 2.7 g/dL (3.2-5.5) L 02/14/20 21:40 Globulin 1.9 g/dL (2.1-4.2) L 02/14/20 21:40 Albumin/Globulin Ratio 1.4 (1.0-2.2) 02/14/20 21:40 Lipase 37 U/L (22-51) 02/14/20 21:40 Blood Type A POSITIVE 02/14/20 21:40 Blood Type Cancelled 02/14/20 21:40 Antibody Screen Cancelled 02/14/20 21:40 Antibody Screen NEGATIVE 02/14/20 21:40 Crossmatch IS Only See Detail 02/14/20 21:40 - Procedures Procedures: Procedures REATTACHMENT OF RIGHT UPPER ARM TENDON, OPEN APPROACH (06/03/19) ABX Reporting Has patient been on IV antibiotics over the past 48 hours?: No
[2020-02-15 20:02] LABS: BASOPHILS % (AUTO) 0.6 %; EOSINOPHILS # (AUTO) 0.1 10^3/uL (0.0-0.7); EOSINOPHILS % (AUTO) 2.1 %; LYMPHOCYTES # (AUTO) 1.3 10^3/uL (1.5-3.5); LYMPHOCYTES % (AUTO) 24.3 %; MEAN CORPUSCULAR HEMOGLOBIN 29.7 pg (27.0-31.0); MEAN CORPUSCULAR HGB CONC 33.2 g/dL (32.0-36.0); MEAN CORPUSCULAR VOLUME 89.3 fL (80.0-94.0); MEAN PLATELET VOLUME 10.4 fL (7.4-11.4); MONOCYTES # (AUTO) 0.4 10^3/uL (0.0-1.0); MONOCYTES % (AUTO) 8.2 %; NEUTROPHILS # (AUTO) 3.4 10^3/uL (1.5-6.6); NEUTROPHILS % (AUTO) 64.2 %; PLT - PLATELET COUNT 196 10^3/uL (130-450); RED BLOOD COUNT 4.38 10^6/uL (4.70-6.10); RED CELL DISTRIBUTION WIDTH 15.4 % (12.0-15.0); WHITE BLOOD COUNT 5.3 x10^3/uL (4.8-10.8)
[2020-02-15 20:06] LABS: INR 1.1 (0.8-1.2); PT - PROTHROMBIN TIME 12.1 secs (9.9-12.6)
[2020-02-15 20:10] LABS: CALCIUM 8.7 mg/dL (8.5-10.3); CREATININE 0.9 mg/dL (0.6-1.2)
--- NOTE | 2020-02-15 20:30 | ANESTHESIA ---
Pre-Anesthesia VS, & Labs - Diagnosis Lower GI Bleed - Procedure EGD/Colonoscopy Vital Signs: Temp Pulse Resp BP Pulse Ox 36.3 C L 79 18 145/76 H 98 02/15/20 19:46 02/15/20 19:46 02/15/20 19:46 02/15/20 19:46 02/15/20 19:46 Height: 5 ft 7 in Weight (kg): 74.5 kg Body Mass Index: 25.7 BMI Classification: Overweight - Lab Results Current Lab Results: Laboratory Tests 02/15/20 19:54: Sodium 137, Potassium 3.7, Chloride 105, Carbon Dioxide 23, Anion Gap 9.0, BUN 14, Creatinine 0.9, Estimated GFR (MDRD) 85 L, Glucose 88, Calcium 8.7 02/15/20 19:54: PT 12.1, INR 1.1 02/15/20 19:54: WBC 5.3, RBC 4.38 L, Hgb 13.0 L, Hct 39.1 L, MCV 89.3, MCH 29.7, MCHC 33.2, RDW 15.4 H, Plt Count 196, MPV 10.4, Neut # (Auto) 3.4, Lymph # (Auto) 1.3 L, [place] # (Auto) 0.4, Eos # (Auto) 0.1, Baso # (Auto) 0.0, Absolute Nucleated RBC 0.00, Nucleated RBC % 0.0 02/15/20 08:10: Sodium 138, Potassium 3.6, Chloride 111, Carbon Dioxide 23, Anion Gap 4.0 L, BUN 18, Creatinine 0.8, Estimated GFR (MDRD) 98, Glucose 101 H, Calcium 7.8 L 02/15/20 08:10: WBC 3.7 L, RBC 3.56 L, Hgb 10.5 L, Hct 31.6 L, MCV 88.8, MCH 29.5, MCHC 33.2, RDW 15.0, Plt Count 154, MPV 10.3, Neut # (Auto) 2.5, Lymph # (Auto) 0.7 L, [place] # (Auto) 0.3, Eos # (Auto) 0.1, Baso # (Auto) 0.0, Absolute Nucleated RBC 0.00, Nucleated RBC % 0.0 09/27/20 21:40: Blood Type Cancelled, Antibody Screen Cancelled, Crossmatch IS Only See Detail 02/14/20 21:40: Troponin I High Sens 2.6 02/14/20 21:40: Sodium 140, Potassium 3.9, Chloride 114 H, Carbon Dioxide 23, Anion Gap 3.0 L, BUN 20, Creatinine 0.9, Estimated GFR (MDRD) 85 L, Glucose 101 H, Calcium 7.5 L, Total Bilirubin 0.5, AST 14, ALT 15, Alkaline Phosphatase 19 L , Total Protein 4.6 L, Albumin 2.7 L, Globulin 1.9 L, Albumin/Globulin Ratio 1.4, Lipase 37 02/14/20 21:40: PT 14.1 H, INR 1.3 H 02/14/20 21:40: WBC 6.8, RBC 2.91 L, Hgb 8.7 L, Hct 27.3 L, MCV 93.8, MCH 29.9, MCHC 31.9 L, RDW 13.8, Plt Count 166, MPV 10.5, Neut # (Auto) 5.6, Lymph # (Auto) 0.7 L, [place] # (Auto) 0.4, Eos # (Auto) 0.1, Baso # (Auto) 0.0, Absolute Nucleated RBC 0.00, Nucleated RBC % 0.0 02/14/20 21:40: Blood Type A POSITIVE, Antibody Screen NEGATIVE Fish Bones: 02/15/20 19:54 02/15/20 19:54 Home Medications and Allergies Home Medications: Ambulatory Orders No Known Home Medications 02/15/20 Active Medications Acetaminophen (Tylenol) 160 mg PO Q6HR PRN PRN Reason: Pain or Fever > 38C (100.4F) Carboxymethylcellulose (Refresh 1% Ophth Drops) 1 drops EACHEYE Q4HR PRN PRN Reason: Dry Eye Last Admin: 02/15/20 16:38 Dose: 1 drops Documented by: Sodium Chloride (Normal Saline 0.9%) 1,000 mls @ 100 mls/hr IV .Q10H [facility] Last Admin: 02/15/20 15:57 Dose: 100 mls/hr Documented by: Ondansetron HCl (Zofran Inj) 4 mg IVP Q6HR PRN PRN Reason: Nausea / Vomiting Pantoprazole Sodium (Protonix) 40 mg IVP QDAC [facility] Last Admin: 02/15/20 09:24 Dose: 40 mg Documented by: Sodium Chloride (Normal Saline Flush 0.9%) 10 ml IVP PRN PRN PRN Reason: NEEDED PER PROVIDER ORDERS Sodium Chloride (Normal Saline Flush 0.9%) 10 ml IVP 0100,0900,1700 [facility] Last Admin: 02/15/20 16:04 Dose: Not Given Documented by: No Known Home Medications 02/15/20 Allergies/Adverse Reactions: Allergies Allergy/AdvReac Type Severity Reaction Status Date / Time No Known Drug Allergies Allergy Verified 02/14/20 21:18 Anes History & Medical History - Anesthetic History Anesthesia Complications: reports: No previous complications Family history of Anesthesia Complications: Denies Family history of Malignant Hyperthermia: Denies - Medical History Cardiovascular: reports: None Pulmonary: reports: None Gastrointestinal: reports: None, Diverticulitis Urinary: reports: None, Other Neuro: reports: None Musculoskeletal: reports: None Endocrine/Autoimmune: reports: None Blood Disorders: reports: None Skin: reports: None Smoking Status: Current some day smoker - Surgical History General: Colonoscopy Eyes Ears Nose Throat (EENT): Tonsil/Adenoidectomy Orthopedic: Other (Arm surgery) Exam General: Alert, Oriented x3, Cooperative, No acute distress Dental: WNL Mouth Opening: Greater than 4 Fingerbreadths Neck Mobility: Normal Mallampati classification: I Thyromental Distance: 4-6 cm Respiratory: Lungs clear, Normal breath sounds, No respiratory distress, No accessory muscle use Cardiovascular: Regular rate, Normal S1, Normal S2, No murmurs Mental/Cognitive Status: Alert/Oriented X3 Plan Anesthesia Type: MAC Consent for Procedure(s) Verified and Reviewed: Yes Code Status: Attempt Resuscitation ASA classification: 2-Mild systemic disease Is this case an emergency?: Yes (Unscheduled)
[2020-02-15] MEDS ORDERED: MORPHINE 2 MG/ML CARPUJECT IVP PRN (20:32)
[2020-02-15] MEDS ORDERED: NALOXONE 0.4 MG/ML VIAL IVP PRN (20:32)
[2020-02-15] MEDS ORDERED: fentaNYL 100 MCG/2 ML VIAL IVP PRN (20:32)
[2020-02-15] MEDS ORDERED: HYDROmorphone 0.5 MG/0.5 ML SYRINGE IVP PRN (20:32)
[2020-02-15] MEDS ORDERED: ePHEDrine 50 MG/ML VIAL IVP PRN (20:32)
[2020-02-15] MEDS ORDERED: METOCLOPRAMIDE 10 MG/2 ML VIAL IVP PRN (20:32)
[2020-02-15] MEDS ORDERED: ATROPINE ABBOJECT 1 MG/10 ML SYRINGE IVP PRN (20:32)
[2020-02-15] MEDS ORDERED: EPINEPHrine 1 MG/ML AMP ONE (20:44)
[2020-02-15] MEDS ORDERED: SODIUM CHLORIDE 0.9% 0 ML ONE (20:48)
[2020-02-15] MEDS ORDERED: LIDO GARGLE 30 ML BOTTLE ONE (20:48)
[2020-02-15] MEDS ORDERED: LACTATED RINGERS 1,000 ML IV SCH (21:00)
--- NOTE | 2020-02-15 22:33 | ANESTHESIA POST OP EVALUATION ---
Anesthesia Post Eval - Post Anesthesia Eval Vitals: Last Vital Signs Temp 36.4 C L 02/15/20 22:28 Pulse 76 02/15/20 22:28 Resp 19 02/15/20 22:28 BP 99/87 H 02/15/20 22:28 Pulse Ox 99 02/15/20 22:28 CV Function Including HR & BP: positive: Stable Pain Control: positive: Satisfactory Nausea & Vomiting: positive: Negative Mental Status: positive: Baseline Respiratory Status: Airway Patent Hydration Status: Satisfactory (Back in mei room. Awake and alert.) Anesthesia Complications: positive: None
--- NOTE | 2020-02-15 22:38 | PROVIDER PROGRESS NOTE ---
Progress Note 64-year-old male with recurrent diverticular bleed. Has been reluctant to proceed with bowel prep in anticipation of recommended colonoscopy. Reported adverse experience last he was worked up [address] [facility]. Upon commencing prep he was noted for bright red blood per rectum. Discussed with hospitalist and opted given the importance of localization in the setting of diverticular bleeding to proceed with urgent colonoscopy to that end. Risk and benefits discussed questions answered informed consent was obtained. Patient was performed for his colonoscopy first and upper endoscopy to follow with the following findings: 1. Extensive pancolonic [place] diverticulosis with the most significa nt/dense disease within the left favoring the sigmoid. 2. Ileocecal valve intubated and terminal ileum evaluated by enteroscopy for at least 3 to 4 feet with no evidence of any bright red blood or clot noted proximal to the ileocecal valve. 3. At approximately 50 cm an area of concern very small mouth diverticula spastic and noted for some wisps of blood; this area was clipped both for localization as well as for therapeutic intention. 4. Upper endoscopy performed to the duodenum, second portion, with no bleeding or concerning features either in the duodenum stomach or esophagus. As it relates to the patient's plan going forward, would recommend to proceed as follows: 1. Proceed with bowel rest, serial H&H, and transfuse as necessary. 2. CT angios to evaluate any bleeding site, occult, as well as to localize the clip 3. Bleeding scan if the patient continues to have evidence of bright red blood per rectum 4. Patient may need to be transferred for interventional radiographic intervention or evaluated for angioembolization here if available Please note that voice recognition software was used to transcribe this note and inadvertent errors might persist in spite of review and editing. I am obliged to you for your attention. I am thankful to you for allowing me to participate with you in this care of this patient.
[2020-02-16] MEDS: SODIUM CHLORIDE FLUSH 0.9% 10 ML SYRINGE IVP SCH ×2 (01:35→13:23)
[2020-02-16] MEDS: SODIUM CHLORIDE 0.9% 1,000 ML IV SCH ×2 (03:22→13:21)
[2020-02-16 05:22] LABS: BASOPHILS % (AUTO) 0.3 %; EOSINOPHILS # (AUTO) 0.2 10^3/uL (0.0-0.7); EOSINOPHILS % (AUTO) 2.9 %; HGB - HEMOGLOBIN 10.8 g/dL (14.0-18.0); LYMPHOCYTES # (AUTO) 1.3 10^3/uL (1.5-3.5); LYMPHOCYTES % (AUTO) 20.2 %; MEAN CORPUSCULAR HEMOGLOBIN 29.9 pg (27.0-31.0); MEAN CORPUSCULAR HGB CONC 33.6 g/dL (32.0-36.0); MEAN CORPUSCULAR VOLUME 88.9 fL (80.0-94.0); MEAN PLATELET VOLUME 10.7 fL (7.4-11.4); MONOCYTES # (AUTO) 0.5 10^3/uL (0.0-1.0); NEUTROPHILS # (AUTO) 4.3 10^3/uL (1.5-6.6); NEUTROPHILS % (AUTO) 68.1 %; PLT - PLATELET COUNT 156 10^3/uL (130-450); RED BLOOD COUNT 3.61 10^6/uL (4.70-6.10); RED CELL DISTRIBUTION WIDTH 15.2 % (12.0-15.0); WHITE BLOOD COUNT 6.3 x10^3/uL (4.8-10.8)
[2020-02-16 05:32] LABS: CREATININE 0.9 mg/dL (0.6-1.2)
[2020-02-16] MEDS: PANTOPRAZOLE 40 MG VIAL IVP SCH (05:47)
[2020-02-16 15:01] LABS: HGB - HEMOGLOBIN 11.1 g/dL (14.0-18.0)
--- NOTE | 2020-02-16 16:03 | Discharge Plan ---
Discharge Plan Problem Reviewed?: Yes Disposition: Home, Self Care Condition: Stable Activity Restrictions: Activity as Tolerated Shower Restrictions: No Driving Restrictions: No Health Concerns: You were seen in the hospital because of rectal bleeding. You were transfused 2 units of blood and your blood counts improved appropriately. Your blood counts have since remained stable. You underwent a colonoscopy which did not show any active bleeding. You have severe diverticulosis which can occasionally cause bleeding. You also had a CT scan of your abdomen performed which did not show any obvious bleeding. 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 It is recommended that you follow-up with a urologist on an outpatient basis for evaluation as you may need a cystoscopy which and they put a camera into your bladder to visualize your ureters and kidneys as you may need a stent. Plan of Treatment: Please refrain from using any blood thinners. Please return to the emergency department if you develop any bleeding. Assessment: The patient expressed understanding of the treatment plan. Additional Instructions or Follow Up instructions: Please follow-up with your primary care provider in 1 to 2 weeks. Please return to the emergency department if you develop any bleeding, lightheadedness, dizziness, signs or symptoms of passing out. No Smoking: If you smoke, Please STOP! Call for help. Follow-up with: Lara Olsen ARNP [Credentialed Staff Provider] -
--- NOTE | 2020-02-16 16:13 | DISCHARGE SUMMARY ---
"Discharge Summary Admit Date: 02/14/20 Discharge Date: 02/16/20 Discharging Provider: Ata Cooper Primary Care Provider: Lara Olsen Code Status: Attempt Resuscitation Condition at Discharge: Stable Discharge Disposition: 01 Home, Self Care - DIAGNOSES Admission Diagnoses: Lower GI bleed Discharge Diagnoses with Status of Each Condition: Diverticular bleed - resolved. Acute blood loss anemia - stable. - HPI History of Present Illness: H&P per Dr. Huerta: Patient is a 64-year-old male with medical history significant for extensive diverticular and previous history of diverticular bleed who presents to the ED with GI bleed. His symptoms have been going on for the past 3 days. On the first day he had 1 episode of bright red blood per rectum. Yesterday he had 2-3 episodes. Today he has had 5-6 bloody stools. The last episode before presentation to the ED it was estimated that he had about 125 mils of blood per rectum. Shortly after that he was dizzy, diaphoretic and nauseous. His blood pressure was 130/80 initially and then dropped to 80/50. His heart rate increased up to the 130s. In the ED work-up showed a hemoglobin of 8.7. In May 2019 the patient's hemoglobin was 15. The patient has not had an episode of bleeding since coming to the hospital. The last time he had significant bleeding warranting admission to the hospital was 7 years ago. He has had several small bouts over the years but had not sought medical attention. During the admission 7 years ago he had a colonoscopy done and was advised due to his extensive diverticuli he would likely need c olectomy. The patient was emphatic then that he did not want surgery. He is currently still very reluctant to the idea of surgery. He is resting comfortably in bed currently. He denies chest pain, abdominal pain, nausea, vomiting, fever or chills. - CONSULTS | PROCEDURES Consultations: General Surgery Procedures: Patient underwent colonoscopy and endoscopy: 1. Extensive pancolonic [place] diverticulosis with the most signifi cant/dense disease within the left favoring the sigmoid. 2. Ileocecal valve intubated and terminal ileum evaluated by enteroscopy for at least 3 to 4 feet with no evidence of any bright red blood or clot noted proximal to the ileocecal valve. 3. At approximately 50 cm an area of concern very small mouth diverticula spastic and noted for some wisps of blood; this area was clipped both for local ization as well as for therapeutic intention. 4. Upper endoscopy performed to the duodenum, second portion, with no bleeding or concerning features either in the duodenum stomach or esophagus. - HOSPITAL COURSE Hospital Course: He was admitted to the floor for a lower GI bleed. Initial hemoglobin was 8.7 and he received 2 units of packed red blood cell with improvement in his hemoglobin to 10.5. He continued to have rectal bleeding and he underwent col onoscopy and endoscopy with the results as mentioned above. The colonoscopy did show significant diverticulosis. There was a small area of bleeding which was clipped. Endoscopy was unremarkable. That evening, the patient continued to have episodes of rectal bleeding. His hemoglobin had remained stable. The following morning he reported no further bleeding and he preferred to be discharged home. He was evaluated by general surgery again and myself and we agreed on repeating a hemoglobin in the afternoon and if that was stable then he could be discharged. His repeat hemoglobin in the afternoon was 11.1 which had increased from 10.8 that same morning. Given his hemoglobin had been stable and he had no further bleeding, he was discharged home and asked to continue a clear liquid diet and advance as tolerated. He was asked to return to the emergency department if you develop any worsening bleeding. The patient was quite pleased to be going home. I did also discuss with him the incidental finding on CT of chronic right hydroureteronephrosis with a likely ureteral stricture. Him and his stated this is chronic for him and he has seen a urologist in the past and was told t hat nothing needs to be done for this. - ALLERGIES Allergies/Adverse Reactions: Allergies Allergy/AdvReac Type Severity Reaction Status Date / Time No Known Drug Allergies Allergy Verified 02/14/20 21:18 - MEDICATIONS Home Medications: Ambulatory Orders Medication Instructions Recorded Confirmed No Known Home Medications 02/15/20 02/15/20 - PHYSICAL EXAM AT DISCHARGE General Appearance: positive: No acute distress, Alert, Mild distress Eyes Bilateral: positive: Conjunctivae nml ENT: positive: ENT inspection nml Neck: positive: Nml inspection Respiratory: positive: No respiratory distress. negative: Wheezes, Rales Cardiovascular: positive: Regular rate & rhythm. negative: Tachycardia, Bradycardia, Systolic murmur Abdomen: positive: Non-tender, No distention, Other (Umbilical hernia noted.). negative: Tenderness, Guarding, Rebound Skin: positive: No rash, Warm, Dry Extremities: positive: Full ROM, No pedal edema Neurologic/Psychiatric: positive: Oriented x3, Motor nml. negative: Disoriented to person, Disoriented to place, Disoriented to time Physical Exam Other/Comments: Vital Signs (72 hours) 02/15/20 02/15/20 02/15/20 14:00 17:00 19:46 Temperature 36.7 C 36.9 C 36.3 C L Heart Rate [ 72 80 79 Brachial] Respiratory 18 18 Rate Blood Pressure 122/75 125/77 145/76 H [Right Brachial artery] O2 Saturation 96 97 98 02/15/20 02/15/20 02/16/20 22:28 22:38 00:21 Temperature 36.4 C L 36.4 C L 36.4 C L Heart Rate [ 76 76 76 Brachial] Respiratory 19 19 18 Rate Blood Pressure 99/87 H 124/76 120/80 [Right Brachial artery] O2 Saturation 99 97 95 02/16/20 02/16/20 02/16/20 04:55 09:00 14:00 Temperature 36.5 C 36.4 C L 36.6 C Heart Rate [ 72 79 90 Brachial] Respiratory 20 18 20 Rate Blood Pressure 112/71 124/66 127/59 L [Right Brachial artery] O2 Saturation 94 98 97 02/16/20 16:30 Temperature 36.6 C Heart Rate [ 88 Brachial] Respiratory 18 Rate Blood Pressure 122/69 [Right Brachial artery] O2 Saturation 98 - LABS Result Diagrams: 02/16/20 14:59 02/16/20 05:09 Other Lab Results: Laboratory Tests 02/14/20 02/14/20 02/14/20 21:40 21:40 21:40 WBC 6.8 RBC 2.91 L Hgb 8.7 L Hct 27.3 L MCV 93.8 MCH 29.9 MCHC 31.9 L RDW 13.8 Plt Count 166 MPV 10.5 Neut # (Auto) 5.6 Lymph # (Auto) 0.7 L [place] # (Auto) 0.4 Eos # (Auto) 0.1 Baso # (Auto) 0.0 Absolute Nucleated RBC 0.00 Nucleated RBC % 0.0 PT 14.1 H INR 1.3 H Sodium Potassium Chloride Carbon Dioxide Anion Gap BUN Creatinine Estimated GFR (MDRD) Glucose Calcium Total Bilirubin AST ALT Alkaline Phosphatase Troponin I High Sens Total Protein Albumin Globulin Albumin/Globulin Ratio Lipase Blood Type A POSITIVE Antibody Screen NEGATIVE Crossmatch IS Only 02/14/20 02/14/20 02/14/20 21:40 21:40 21:40 WBC RBC Hgb Hct MCV MCH MCHC RDW Plt Count MPV Neut # (Auto) Lymph # (Auto) [place] # (Auto) Eos # (Auto) Baso # (Auto) Absolute Nucleated RBC Nucleated RBC % PT INR Sodium 140 Potassium 3.9 Chloride 114 H Carbon Dioxide 23 Anion Gap 3.0 L BUN 20 Creatinine 0.9 Estimated GFR (MDRD) 85 L Glucose 101 H Calcium 7.5 L Total Bilirubin 0.5 AST 14 ALT 15 Alkaline Phosphatase 19 L Troponin I High Sens 2.6 Total Protein 4.6 L Albumin 2.7 L Globulin 1.9 L Albumin/Globulin Ratio 1.4 Lipase 37 Blood Type Cancelled Antibody Screen Cancelled Crossmatch IS Only See Detail 02/15/20 02/15/20 02/15/20 08:10 08:10 19:54 WBC 3.7 L 5.3 RBC 3.56 L 4.38 L Hgb 10.5 L 13.0 L Hct 31.6 L 39.1 L MCV 88.8 89.3 MCH 29.5 29.7 MCHC 33.2 33.2 RDW 15.0 15.4 H Plt Count 154 196 MPV 10.3 10.4 Neut # (Auto) 2.5 3.4 Lymph # (Auto) 0.7 L 1.3 L [place] # (Auto) 0.3 0.4 Eos # (Auto) 0.1 0.1 Baso # (Auto) 0.0 0.0 Absolute Nucleated RBC 0.00 0.00 Nucleated RBC % 0.0 0.0 PT INR Sodium 138 Potassium 3.6 Chloride 111 Carbon Dioxide 23 Anion Gap 4.0 L BUN 18 Creatinine 0.8 Estimated GFR (MDRD) 98 Glucose 101 H Calcium 7.8 L Total Bilirubin AST ALT Alkaline Phosphatase Troponin I High Sens Total Protein Albumin Globulin Albumin/Globulin Ratio Lipase Blood Type Antibody Screen Crossmatch IS Only 02/15/20 02/15/20 02/16/20 19:54 19:54 05:09 WBC 6.3 RBC 3.61 L Hgb 10.8 L Hct 32.1 L MCV 88.9 MCH 29.9 MCHC 33.6 RDW 15.2 H Plt Count 156 MPV 10.7 Neut # (Auto) 4.3 Lymph # (Auto) 1.3 L [place] # (Auto) 0.5 Eos # (Auto) 0.2 Baso # (Auto) 0.0 Absolute Nucleated RBC 0.00 Nucleated RBC % 0.0 PT 12.1 INR 1.1 Sodium 137 Potassium 3.7 Chloride 105 Carbon Dioxide 23 Anion Gap 9.0 BUN 14 Creatinine 0.9 Estimated GFR (MDRD) 85 L Glucose 88 Calcium 8.7 Total Bilirubin AST ALT Alkaline Phosphatase Troponin I High Sens Total Protein Albumin Globulin Albumin/Globulin Ratio Lipase Blood Type Antibody Screen Crossmatch IS Only 02/16/20 02/16/20 05:09 14:59 WBC RBC Hgb 11.1 L Hct 33.2 L MCV MCH MCHC RDW Plt Count MPV Neut # (Auto) Lymph # (Auto) [place] # (Auto) Eos # (Auto) Baso # (Auto) Absolute Nucleated RBC Nucleated RBC % PT INR Sodium 141 Potassium 3.7 Chloride 112 H Carbon Dioxide 21 Anion Gap 8.0 BUN 10 Creatinine 0.9 Estimated GFR (MDRD) 85 L Glucose 75 Calcium 8.0 L Total Bilirubin AST ALT Alkaline Phosphatase Troponin I High Sens Total Protein Albumin Globulin Albumin/Globulin Ratio Lipase Blood Type Antibody Screen Crossmatch IS Only - FOLLOW UP Follow Up: He was asked to follow-up with his primary care provider in 1 to 2 weeks. - TIME SPENT Time Spent in Discharge (Minutes): 31"
[2020-02-16] MEDS ORDERED: KETAMINE 500 MG/10 ML VIAL IVP ONE (16:34)
[2020-02-16] MEDS ORDERED: GLYCOPYRROLATE 1 MG/5 ML VIAL IVP ONE (16:34)
[2020-02-16] MEDS ORDERED: PROPOFOL 200 MG/20 ML VIAL IVP ONE (16:34)
[2020-02-16 16:51] VITALS: BP 122/69
== END 2020-02-16 16:35 | disposition home or self-care (01) | DRG 378 ==
LOC: EDUNIT# → ED 21:11 → MS3 22:39 → UNDOADMIN 22:39 → ED 23:09 → MS3 23:27 → OBSVTOIN 02-15 13:01
PROVIDERS: ADMIT Internal Medicine; ATTEND Internal Medicine
PROC: 0W3P8ZZ Control Bleeding in Gastrointestinal Tract, Via Natural or Artificial Opening Endoscopic (ICD-10-PCS; principal; 2020-02-15 20:15)
PROC: 0DJ08ZZ Inspection of Upper Intestinal Tract, Via Natural or Artificial Opening Endoscopic (ICD-10-PCS; 2020-02-15 20:15)
DX: K57.31 Diverticulosis of large intestine without perforation or abscess with bleeding (principal); D62 Acute posthemorrhagic anemia; N13.1 Hydronephrosis with ureteral stricture, not elsewhere classified; H91.90 Unspecified hearing loss, unspecified ear; Z87.891 Personal history of nicotine dependence
CPT/HCPCS: 36415; 36430; 74177; 80048; 80053; 83690; 84484; 85014; 85018; 85025; 85610; 86850; 86900; 86901; 86920; 93005; 96361; 96374; 96376; 99284; 99285; A9270; G0378; P9016; Q9967

== ENCOUNTER 2020-02-23 20:11 | Outpatient (CLI) | payer BC | END 2020-02-23 23:59 | disposition E | LOC: EMS 20:11 | PROVIDERS: ATTEND Surgery ==